=== PATIENT | male | born 1960 | race Caucasian/White ===

== ENCOUNTER → 2016-05-31 | Emergency (ER) | payer SELFPAY ==
[~2016-05-31] VITALS: Ht 170.2 cm; Wt 78.7 kg
[2016-05-31 14:10] VITALS: BP 168/107
--- NOTE | 2016-05-31 14:28 | NUR ---
pt has to much alcohol on board to answer questions, slurred words, does not follow commands, cannot remember his hx
--- NOTE | 2016-05-31 14:32 | NUR ---
pt cannot remember meds he takes, only lisinopril
[2016-05-31 15:05] LABS: GLUCOSE, URINE (UA) Negative (Negative); LEUKOCYTE ESTERASE ,URINE Trace (Negative); PH,URINE 5.5 (5.0 - 8.0); UROBILINOGEN,URINE 0.2 mg/dL (0.2-1.0)
[2016-05-31 15:06] LABS: BILIRUBIN,URINE 1+ (Negative); CLARITY,URINE Slightly Cloudy; COLOR,URINE Brown
[2016-05-31 15:13] LABS: BASOPHILS % (AUTO) 1 % (0-2); EOSINOPHILS # (AUTO) 0.1 10^3uL; EOSINOPHILS % (AUTO) 2 % (0-4); LYMPHOCYTES # (AUTO) 1.7 X10^3; MEAN CORPUSCULAR VOLUME 87 FL (80-100); MEAN PLATELET VOLUME 8.9 FL (6.0-9.5); MONOCYTES # (AUTO) 0.7 X10^3; MONOCYTES % (AUTO) 14 % (3-11); NEUTROPHILS # (AUTO) 2.4 X10^3; NEUTROPHILS % (AUTO) 49 % (51-67); PLATELET COUNT 199 10^3uL (150-450); WHITE BLOOD COUNT 4.88 10^3uL (4.0-11.0)
[2016-05-31 15:16] LABS: ALBUMIN 4.6 g/dL (3.4-5.0); ANION GAP 17.9 MEQ/L (3-15); CALCULATED IONIZED CALCIUM 3.7 mg/dL (3.8-4.6); TOTAL PROTEIN 8.1 g/dL (6.4-8.5)
[2016-05-31 15:18] LABS: URINE CENTRIFUGED VOLUME 12 mL
[2016-05-31 15:19] LABS: RBC,URINE TNTC /HPF
[2016-05-31 15:34] LABS: MEAN CORPUSCULAR HEMOGLOBIN 32.2 PG (26.0-34.0); MEAN CORPUSCULAR HGB CONC 37.1 g/dL (31.0-37.0)
== END | disposition home or self-care (01) ==
LOC: ED 14:07
DX: R31.9 Hematuria, unspecified (principal); F10.129 Alcohol abuse with intoxication, unspecified; Y90.8 Blood alcohol level of 240 mg/100 ml or more; Z98.890 Other specified postprocedural states; F17.210 Nicotine dependence, cigarettes, uncomplicated
CPT/HCPCS: 36415; 80053; 80320; 81003; 81015; 83690; 85025; 96360; 99282; J7030